=== PATIENT | male | born 1995 | race Caucasian/White ===

== ENCOUNTER 2017-03-17 14:56 | Inpatient (IN) | payer BC, OTHER ==
[~2017-03-17] VITALS: Ht 165.1 cm; Wt 63.5 kg
[~2017-03-17 14:56] MED LIST: Gabapentin PO; MULT-24 PO; SERT100T PO; TRAZ-147 PO
--- NOTE | 2017-03-17 23:30 | NUR ---
ADMISSION NOTE--- ADMITTING 22 Y/O MALE FOR HEROIN/METH/BENZO DEPENDENCY.PT IS A/O X 4.THIS IS HIS THIRD ADMISSION TO [facility].HE WAS HERE TWO TIMES IN 2016 IN APRIL AND SEPTEMBER.PT IS 5 FEET AND 5 INCHES TALL.WEIGHS 140 POUNDS.HE IS PLEASANT AND COOPERATIVE WITH ADMISSION PROCESS.PLACED ON REGULAR DIET,FULL CODE STATUS.PY DENIES ANY ALLERGIES TO FOOD OR MEDICATIONS.SKIN IS INTACT,WARM AND DRY TO TOUCH.PT HAS TRACK WILLAMS ON BOTH HANDS,ARMS,LEGS AND NECK.RIGHT HAND IS SWOLLEN.NO C/O PAIN OR S/S OF INFECTION NOTED.BREATHING IS EVEN AND NON LABORED.BOWEL SOUNDS PRESENT X 4.NO C/O N/V/D NOTED.PT DENIES ANY SI/HI/AH/VH.PT REPORTED PMH OF ANXIETY,DEPRESSION AND A ONE TIME SEIZURE DUE TO BENZO WITHDRAWAL 4 YEARS AGO.PT DOES NOT HAVE A PCP.HE IS HOMELESS AND IS LIVING IN HIS CAR.PT HAS BEEN USING HEROIN SINCE THE AGE OF 16,METH SINCE THE AGE OF 18 AND BENZOS SINCE THE AGE OF 16.HE RELAPSED ONE MONTH AFTER HE WAS DISCHARGED FROM [facility] IN OCTOBER 2016.DRUGS USE FOLLOWS:-- 1) HEROIN - 1 TO 2 GRAMS IV DAILY. LAST USED - 1/2 GRAM ON 03/17/17 2) METH - 1 TO 3 GRAMS DAILY,IV/SNORTING. LAST USE - 3 GRAMS ON 03/17/17 3) BENZOS - UPTO 12 MGS PO DAILY. LAST TAKEN - 10 MGS ON 03/17/17 PT ORIENTED TO ROOM AND UNIT.SNACKS PROVIDED.CARE PLAN AND SAFETY CHECKS INITIATED. NOTIFIED.PT PLACED ON FALL/SEIZURE PRECAUTIONS.ALL SAFETY MEASURES IN PLACE.BED IS LOCKED IN THE LOWEST POSITION,SIDE RAILS UP AND PADDED X 2.CALL LIGHT WITHIN REACH.WILL CONTINUE TO MONITOR. Addendum: 03/18/17 at 0219 by MARISSA TITI RN ON ADMISSION,COWS=6,CIWA=1.
[2017-03-17] MEDS ORDERED: diphenhydrAMINE 50 MG CAPSULE PO PRN (23:45)
[2017-03-17] MEDS ORDERED: CLONIDINE HCL 0.1 MG TABLET PO PRN (23:45)
[2017-03-17] MEDS ORDERED: ONDANSETRON ODT 4 MG TAB.RAPDIS SL PRN (23:45)
[2017-03-17] MEDS ORDERED: METHOCARBAMOL 750 MG TABLET PO PRN (23:45)
[2017-03-17] MEDS ORDERED: HYDROXYZINE PAMOATE 25 MG CAPSULE PO PRN (23:45)
[2017-03-17] MEDS ORDERED: MAG HYDROX/AL HYDROX/SIMETH 30 ML LIQUID UDC PO PRN (23:45)
[2017-03-17] MEDS ORDERED: DIAZEPAM 10 MG TABLET PO PRN ×2 (23:45)
[2017-03-17] MEDS ORDERED: LOPERAMIDE HCL 2 MG CAPSULE PO PRN ×2 (23:45)
[2017-03-17] MEDS ORDERED: MAGNESIUM HYDROXIDE 30 ML LIQUID UDC PO PRN (23:45)
[2017-03-17] MEDS ORDERED: ACETAMINOPHEN 325 MG TABLET PO PRN (23:45)
[2017-03-17] MEDS ORDERED: MIRALAX 17 GM POWD.PACK PO PRN (23:45)
[2017-03-17] MEDS ORDERED: LORAZEPAM 2 MG/1 ML VIAL IM PRN (23:45)
[2017-03-18] VITALS (7 sets, daily range): BP systolic 101–129; BP diastolic 47–75
[2017-03-18 00:45] LABS: ALANINE AMINOTRANSFERASE 24 U/L (16-63); ALBUMIN 3.6 g/dL (3.4-5.0); ALKALINE PHOSPHATASE 87 U/L (50-136); AMYLASE 55 U/L (25-115); ASPARTATE AMINOTRANSFERASE 20 U/L (15-37); BILIRUBIN,TOTAL 0.2 mg/dL (0.2-1.0); CALCIUM 9.2 mg/dL (8.5-10.1); CHLORIDE 100 mmol/L (98-107); CREATININE 0.9 mg/dL (0.6-1.3); GFR 106 mL/min (>60); GLUCOSE 88 mg/dL (74-106); LIPASE 60 U/L (73-393); MAGNESIUM 1.9 mg/dL (1.8-2.4); POTASSIUM 3.8 mmol/L (3.5-5.1); SODIUM SERUM 138 mmol/L (136-145); TOTAL PROTEIN, SERUM 8.5 g/dL (6.4-8.2); UREA NITROGEN, BLOOD 13 mg/dL (7-18)
[2017-03-18] MEDS ORDERED: CLONIDINE HCL 0.1 MG TABLET ONE (00:45)
--- NOTE | 2017-03-18 00:45 | NUR ---
PRN CLONIDINE 0.1 MG PO GIVEN FOR ANXIETY.UB=962.WILL MONITOR FOR EFFECTIVENESS.
[2017-03-18 00:53] LABS: ETHANOL < 3 MG/DL (0-0)
[2017-03-18 00:54] LABS: CARBON DIOXIDE 33 mmol/L (21-32)
[2017-03-18 00:55] LABS: BASOPHILS % (AUTO) 0.5 % (0.0-2.0); EOSINOPHILS # (AUTO) 0.4 K/uL (0.0-0.7); EOSINOPHILS % (AUTO) 4.9 % (0.0-7.0); HEMATOCRIT 37.3 % (36.7-47.1); HEMOGLOBIN 12.4 g/dL (12.5-16.3); LYMPHOCYTES # (AUTO) 1.4 K/uL (20.0-40.0); LYMPHOCYTES % (AUTO) 18.3 % (20.5-51.5); MEAN CORPUSCULAR HEMOGLOBIN 26.9 uug (23.8-33.4); MEAN CORPUSCULAR HGB CONC 33 g/dL (32.5-36.3); MONOCYTES # (AUTO) 0.5 K/uL (2.0-10.0); MONOCYTES % (AUTO) 6.9 % (0.0-11.0); NEUTROPHILS # (AUTO) 5.3 K/uL (1.8-8.9); NEUTROPHILS % (AUTO) 69.4 % (38.5-71.5); PLATELET COUNT (AUTO) 395 K/uL (152-348); RED BLOOD CELL COUNT(AUTO) 4.61 MIL/uL (4.06-5.63); RED CELL DISTRIBUTION WIDTH 13.6 % (12.1-16.2); WHITE BLOOD COUNT (AUTO) 7.6 K/uL (3.6-10.2)
[2017-03-18 00:58] LABS: THYROID STIMULATING HORMONE 4.515 mIU/mL (0.358-3.740)
[2017-03-18 01:02] LABS: HIV-1 p24 ANTIGEN NON REACTIVE (NONREACTIVE); HIV-1/2 ANTIBODY NON REACTIVE (NONREACTIVE)
[2017-03-18] MEDS ORDERED: RISP2TAB5 PO (01:39)
--- NOTE | 2017-03-18 01:45 | NUR ---
PRN F/U-- DECREASED ANXIETY.HR REDUCED TO 100.PT EDUCATED ON RELAXATION TECHNIQUES.ENCOURAGED TO RELAX.
[2017-03-18 01:46] LABS: *AMPHETAMINE, URINE POSITIVE (NEGATIVE); *BARBITURATE, URINE NEGATIVE (NEGATIVE); *CANNABINOID, URINE NEGATIVE (NEGATIVE); *COCCAINE, URINE NEGATIVE (NEGATIVE); *OPIATE, URINE POSITIVE (NEGATIVE); *PHENCYCLIDINE SCREEN,URINE NEGATIVE (NEGATIVE)
[2017-03-18] MEDS: DIAZEPAM 5 MG TABLET PO PRN ×2 (04:06→08:24)
--- NOTE | 2017-03-18 04:08 | NUR ---
PRN VALIUM 5 MG PO GIVEN FOR ANXIETY/CIWA SCORE 0F 5.WILL MONITOR.
[2017-03-18] MEDS ORDERED: DIAZEPAM 5 MG TABLET ONE (04:13)
--- NOTE | 2017-03-18 05:08 | NUR ---
PRN F/U--- PT IS RESTING IN BED WITH EYES CLOSED.NO S/S OF ANXIETY NOTED AT THIS TIME.
--- NOTE | 2017-03-18 06:39 | NUR ---
END OF SHIFT-- PT IS 22 Y/O MALE FOR HEROIN/METH/BENZO DEPENDENCY.PT IS A/O X4.PLACED ON REGULAR DIET,FULL CODE STATUS.PY DENIES ANY ALLERGIES TO FOOD OR MEDICATIONS.SKIN IS INTACT,WARM AND DRY TO TOUCH.PT HAS TRACK WILLAMS ON BOTH HANDS,ARMS,LEGS AND NECK.RIGHT HAND IS SWOLLEN.NO C/O PAIN OR S/S OF INFECTION NOTED.BREATHING IS EVEN AND NON LABORED.BOWEL SOUNDS PRESENT X 4.NO C/O N/V/D NOTED.PT DENIES ANY SI/HI/AH/VH.PT REPORTED PMH OF ANXIETY,DEPRESSION AND A ONE TIME SEIZURE DUE TO BENZO WITHDRAWAL 4 YEARS AGO. ON ADMISSION,COWS=6,CIWA=1.PRN CLONIDINE GIVEN FOR ANXIETY AND HR OF 123,AND PRN VALIUM GIVEN FOR CIWA OF 5 WITH GOOD EFFECT.PT SLEPT 3 HRS LAST NIGHT.FLUID INTAKE WAS 3,750 MLS,VOIDED X I.NO C/O PAIN NOTED,ALL SAFETY MEASURES IN PLACE,LAST COWS=2,CIWA=2.CALL LIGHT WITHIN REACH,WILL CONTINUE TO MONITOR.
--- NOTE | 2017-03-18 08:00 | NUR ---
START OF SHIFT Pt 22 y/o male admitted for opioid/ methamphetamine/ benzo dependence. Pt received in room awake standing. Pt alert and oriented to name, place, and time. Perrla. Skin warm and slightly moist to touch. Bilateral hand tremors noted. Pt not able to sit still and also with pressured speech noted. It was reported that pt slept for 2 hours last night. Bed on lowest position with side rails x2 up for safety. Call light within reach. Lowered the blinds and turned off the lights and encourage pt to try and get some more rest, as pt did not sleep that long last night. No distress noted at this time.
[2017-03-18] MEDS: IBUPROFEN 400 MG TABLET PO PRN (08:24)
[2017-03-18] MEDS: MULTIVITAMINS,THERAPEUTIC TABLET PO SCH (08:24)
--- NOTE | 2017-03-18 08:24 | NUR ---
PRN Pt with ciwa=7. Pt observed with bilateral hand tremors. Pressured speech noted. Pt not able to sit still. Valium 5mg po prn per MD order given and tolerated well.
--- NOTE | 2017-03-18 08:24 | NUR ---
PRN Pt states he feels anxious and restless. Vistaril po prn per MD order given and tolerated well.
--- NOTE | 2017-03-18 08:24 | NUR ---
PRN Pt with c/o pain of BUE 7/10 aching. Motrin po prn per MD order given and tolerated well.
--- NOTE | 2017-03-18 08:24 | NUR ---
PRN Pt states that he did not have a BM today and feels constipated. MOM po prn per MD order given and tolerated well.
--- NOTE | 2017-03-18 08:24 | NUR ---
PRN Pt states he feels nauseated. Zoforan odt sl prn per MD order given and tolerated well.
[2017-03-18] MEDS ORDERED: TUBERCULIN,PURIF.PROT.DERIV. 5 TU/0.1 ML TEST ID ONE (09:00)
--- NOTE | 2017-03-18 09:24 | NUR ---
PRN EVAL Pt denies any nausea at this time.
--- NOTE | 2017-03-18 09:24 | NUR ---
PRN EVAL Pt with ciwa=3 noted.
--- NOTE | 2017-03-18 09:24 | NUR ---
PRN EVAL Pt states pain level 3/10 noted.
--- NOTE | 2017-03-18 09:24 | NUR ---
PRN EVAL Pt observed in patio sitting. No distress noted at this time.
[2017-03-18] MEDS: DIAZEPAM 10 MG TABLET PO SCH ×3 (13:05→21:12)
[2017-03-18] MEDS: BUPRENORPHINE HCL 2 MG TAB.SUBL SL PRN ×3 (13:05→21:12)
--- NOTE | 2017-03-18 13:07 | NUR ---
PRN Pt with c/o runny nose, stomach cramps, body aches, bilateral gross hand tremos, chills and sweats, and goose bumps noted. cows=15. Subutex 4 mg po prn per MD order given and tolerated well.
--- NOTE | 2017-03-18 13:07 | NUR ---
PRN EVAL Cows=4. Pt observed in room on bed with eyes closed resting, but easily arousable to name. No distress noted at this time.
[2017-03-18] MEDS: GABAPENTIN 300 MG CAPSULE PO SCH ×2 (15:00→21:12)
--- NOTE | 2017-03-18 17:39 | NUR ---
PRN SUBUTEX Patient has COWS = 12, reports sweating, nausea, piloerection, tremors, anxiety and bony/joint aches. PRN subutex 4mg po given. Will continue to monitor patient.
[2017-03-18] MEDS ORDERED: TRAZODONE 100 MG TABLET PO SCH ×2 (18:00)
--- NOTE | 2017-03-18 18:09 | NUR ---
REASSESSMENT PRN SUBUTEX Patient has COWS = 9, reports sweating, piloerection, tremors, anxiety and bony/joint aches. Patient reports nausea improved.
--- NOTE | 2017-03-18 19:29 | NUR ---
END OF SHIFT Pt 22 y/o male admitted for opioid/ methamphetamine/ benzo dependence. Pt alert and oriented to name, place, and time. Perrla. Skin warm and slightly moist to touch. Bilateral hand tremors noted. Pt with episodes of sweats throughout the day. Goosebumps also noted on skin throughout the afternoon. Pt medication compliant and tolerated well. No ASE noted. Bed on lowest position with side rails x2 up for safety. Call light within reach. . No distress noted at this time.
--- NOTE | 2017-03-18 20:00 | NUR ---
Start of Shift Note: Report received from day shift nurse. Pt is a 22 yo male admitted on 03/17/17 for medically-supervised withdrawal from benzodiazepines, opiates, and amphetamines. Pt reports taking 12mg Xanax, using 1-2gm heroin, and 1-3gm methamphetamine daily for 4 months. Pt is on day 2 of a 5-day Valium taper, and PRN Subutex is available. 4-day Subutex taper to start tomorrow morning. Last day shift COWS=9, CIWA=6, and PRN Subutex was given x2 during day shift. Pt is on a regular diet. Pt reports NKDA/NKFA. Pt reports med hx: anxiety, depression, and seizure x1 (2012). Pt received in room, and reports anxiety, diaphoresis, sensitivity to light and sound, tremor, chills, restlessness, stomach cramps, and pain. Bed is in low position and locked, side rails up x2, call light within reach. Will continue to monitor.
[2017-03-18] MEDS: TRAZODONE 100 MG TABLET PO SCH (21:12)
--- NOTE | 2017-03-18 21:14 | NUR ---
PRN Subutex 4mg: Patient complains of stomach cramps, back pain, chills, anxiety, restlessness. Patient noted with pupils at 5mm and diaphoresis. HR is 104 at rest. COWS is 12. Administered PRN Subutex 4mg SL as ordered according to CIWA score. Will reassess in one hour for effectiveness.
--- NOTE | 2017-03-18 22:12 | NUR ---
PRN Reassessment: Patient reports a decrease in anxiety, diaphoresis, pain, and stomach cramps. COWS decreased from 12 to 3 one hour after PRN Subutex 4mg SL administration. Will continue to monitor.
[2017-03-19] VITALS (8 sets, daily range): BP systolic 86–119; BP diastolic 33–64
--- NOTE | 2017-03-19 | NUR ---
COWS/CIWA Deferred: COWS and CIWA assessments are deferred for sleep. VS: 98.1, 77, 16, 99%, 115/59. Addendum: 03/19/17 at 0236 by MARILYN BUI RN Amended: Links added.
--- NOTE | 2017-03-19 04:00 | NUR ---
COWS/CIWA Deferred: COWS/CIWA assessments are deferred while patient sleeps. VS: 98.0, 68, 16, 99%, 86/41. Addendum: 03/19/17 at 0600 by MARILYN BUI RN Amended: Links added.
--- NOTE | 2017-03-19 06:59 | NUR ---
End of Shift Note: Pt is a 22 yo male admitted to [facility] on 03/17/17 for medically-supervised withdrawal from benzodiazepines, opiates, and amphetamines. Pt reports med hx: anxiety, depression, and seizure x1 (2012). Pt is on a regular diet. Pt reports NKDA/NKFA. Pt reports taking 12mg Xanax, using 1-2gm heroin, and 1-3gm methamphetamine daily for 4 months. Pt is to start day 3 of a 5-day Valium taper and day 1 of a 4-day Subutex taper. Scheduled medication regime effectively managed s/s of withdrawal this shift, in addition to PRN Subutex for COWS=12, which was effective and reduced COWS=3. Last COWS=3 at 22:12 and CIWA=9 at 20:00. V/S stable throughout shift, with elevated HR of 104 at 20:00. Total fluid intake this shift: 400 ml; output: urine x 1 and BM x 0. Pt currently in bed and slept 9 hours this shift. Pt endorsed to day shift nurse.
--- NOTE | 2017-03-19 07:30 | NUR ---
START OF SHIFT Pt 22 y/o male admitted for opioid/ methamphetamine/ benzo dependence. Pt received in room with eyes closed resting, but easily arousable to name. Pt alert and oriented to name, place, and time. Perrla. Skin warm and slightly moist to touch. Bilateral hand tremors noted. It was reported that pt slept for 9 hours last night. Bed on lowest position with side rails x2 up for safety. Call light within reach. No distress noted at this time.
[2017-03-19] MEDS: DIAZEPAM 10 MG TABLET PO SCH ×3 (08:27→21:10)
[2017-03-19] MEDS: MULTIVITAMINS,THERAPEUTIC TABLET PO SCH (08:27)
[2017-03-19] MEDS: GABAPENTIN 300 MG CAPSULE PO SCH ×3 (08:27→21:10)
[2017-03-19] MEDS: SERTRALINE HCL 100 MG TABLET PO SCH (08:28)
[2017-03-19] MEDS: BUPRENORPHINE HCL 2 MG TAB.SUBL SL SCH ×3 (08:28→21:10)
[2017-03-19] MEDS ORDERED: 4 DAY TAPER BUPRENORPHINE -SERENITY PROTOCOL SL PRN (09:00)
--- NOTE | 2017-03-19 10:00 | NUR ---
NSG ENTRY Pt observed in room awake on bed watching television. Bed on lowest position with side rails x2 up for safety. Call light within reach. No distress noted at this time.
[2017-03-19 14:08] LABS: HEPATITIS B CORE AB, IgM Negative (Negative); HEPATITIS B SURFACE AG Negative (Negative)
--- NOTE | 2017-03-19 18:05 | NUR ---
END OF SHIFT Pt 22 y/o male admitted for opioid/ methamphetamine/ benzo dependence. Pt alert and oriented to name, place, and time. Perrla. Skin warm and slightly moist to touch. Bilateral hand tremors noted. Goose bumps also noted on skin mostly generalized on bilateral arms, throughout the morning. Pt medication compliant and tolerated well. No ASE noted. Pt was seen by Dr. May today. Bed on lowest position with side rails x2 up for safety. Call light within reach. . No distress noted at this time.
--- NOTE | 2017-03-19 19:50 | NUR ---
Start of Shift Note: Report received from day shift nurse. Pt is a 22 yo male admitted on 03/17/17 for medically-supervised withdrawal from opiates, benzodiazepines, and amphetamines. Pt reports taking Xanax 12mg/day, using heroin 1-2gm/day, and methamphetamine 1-3gm/day for 4 months. Pt is on day 3 of a 5-day Valium taper, and day 1 of a 4-day Subutex taper. Last day shift COWS=5, CIWA=2, and no PRN medications were necessary during day shift. Pt is on a regular diet. Pt reports NKDA/NKFA. Pt reports med hx: anxiety, depression, and seizure x1 (2012). Pt received in room, and reports anxiety, diaphoresis, chills. Bed is in low position and locked, side rails up x2, call light within reach. Will continue to monitor.
[2017-03-19] MEDS: DOCUSATE SODIUM 100 MG CAPSULE PO SCH (21:10)
[2017-03-19] MEDS: TRAZODONE 100 MG TABLET PO SCH (21:10)
[2017-03-20] VITALS (7 sets, daily range): BP systolic 105–124; BP diastolic 51–81
--- NOTE | 2017-03-20 | NUR ---
COWS/CIWA Deferred: Ordered COWS/CIWA Q4HWA deferred while patient sleeps. VS: 98.5, 67, 14, 98%, 110/53. All safety precautions are in place. Will continue to monitor. Addendum: 03/20/17 at 0036 by MARILYN BUI RN Amended: Links added.
--- NOTE | 2017-03-20 04:00 | NUR ---
COWS/CIWA Deferred: COWS and CIWA are deferred for sleep. V/S stable. All safety precautions are in place. Will continue to monitor. Addendum: 03/20/17 at 0530 by MARILYN BUI RN Amended: Links added.
--- NOTE | 2017-03-20 07:06 | NUR ---
End of Shift Note: Pt is a 22 yo male admitted to [facility] on 03/17/17 for medically-supervised withdrawal from benzos, opiates, and amphetamines. Pt reports med hx: anxiety, depression, and seizure. Pt is on a regular diet and reports NKDA/NKFA. Pt reports using 12mg Xanax, 1-2gm heroin, and 1-3gm methamphetamine daily for 4 months. Pt is to start day 2 of a 4-day Subutex taper and day 4 of a 5-day Valium taper. Scheduled medication regime effectively managed s/s of withdrawal this shift, and no PRN medications were necessary. Last COWS=6, CIWA=7 at 20:00. V/S stable throughout shift. Total fluid intake this shift: 800 ml; output: urine x 1 and BM x 0. Pt is currently in bed and slept 9 hours this shift. Pt endorsed to day shift nurse.
--- NOTE | 2017-03-20 08:00 | NUR ---
START OF SHIFT Pt 22 y/o male admitted for opioid/ methamphetamine/ benzo dependence. Pt received in room on bed watching television. Pt alert and oriented to name, place, and time. Perrla. Skin warm and slightly moist to touch. Bilateral hand tremors noted. It was reported that pt slept for 9 hours last night. Bed on lowest position with side rails x2 up for safety. Call light within reach. No distress noted at this time.
[2017-03-20 08:31] LABS: BASOPHILS % (AUTO) 0.6 % (0.0-2.0); EOSINOPHILS # (AUTO) 0.3 K/uL (0.0-0.7); EOSINOPHILS % (AUTO) 5.2 % (0.0-7.0); HEMATOCRIT 37.1 % (40-50); HEMOGLOBIN 12.3 G/DL (14.0-18.0); LYMPHOCYTES # (AUTO) 1.1 K/uL (20.0-40.0); LYMPHOCYTES % (AUTO) 21.8 % (20.5-51.5); MEAN CORPUSCULAR HEMOGLOBIN 27.1 UUG (27.0-31.0); MEAN CORPUSCULAR HGB CONC 33 g/dL (32.0-37.0); MEAN CORPUSCULAR VOLUME 81.6 FL (82.0-92.0); MONOCYTES # (AUTO) 0.8 K/uL (2.0-10.0); MONOCYTES % (AUTO) 15.4 % (0.0-11.0); PLATELET COUNT (AUTO) 338 K/UL (150-450); RED BLOOD CELL COUNT(AUTO) 4.55 MIL/UL (4.7-6.1); RED CELL DISTRIBUTION WIDTH 13.5 % (11.5-14.5); WHITE BLOOD COUNT (AUTO) 5.2 K/UL (4.0-11.2)
[2017-03-20] MEDS: IBUPROFEN 400 MG TABLET PO PRN (08:44)
[2017-03-20] MEDS: DOCUSATE SODIUM 100 MG CAPSULE PO SCH ×2 (08:44→20:43)
[2017-03-20] MEDS: MULTIVITAMINS,THERAPEUTIC TABLET PO SCH (08:44)
[2017-03-20] MEDS: SERTRALINE HCL 100 MG TABLET PO SCH (08:44)
[2017-03-20] MEDS: DIAZEPAM 5 MG TABLET PO SCH ×4 (08:44→20:43)
[2017-03-20] MEDS: GABAPENTIN 300 MG CAPSULE PO SCH ×3 (08:44→20:42)
--- NOTE | 2017-03-20 08:44 | NUR ---
PRN Pt with c/o back aches 02/23. Motrin po prn per MD order given and tolerated well.
[2017-03-20] MEDS ORDERED: BUPRENORPHINE HCL 2 MG TAB.SUBL SL SCH (09:00)
[2017-03-20 09:04] LABS: CALCIUM 8.9 mg/dL (8.5-10.1); CREATININE 0.9 mg/dL (0.6-1.3); POTASSIUM 4.4 mmol/L (3.5-5.1)
[2017-03-20 09:07] LABS: BAND % (MANUAL) 1 % (0-10); EOSINOPHILS % (MANUAL) 4 % (0-8); LYMPHOCYTES % (MANUAL) 33 % (20-40); MONOCYTES % (MANUAL) 13 % (2-10); NEUTROPHILS % (MANUAL) 49 % (42-75)
[2017-03-20 09:08] LABS: PLATELET ESTIMATE ADEQUATE
[2017-03-20 09:28] LABS: THYROID STIMULATING HORMONE 0.291 mIU/mL (0.358-3.740)
--- NOTE | 2017-03-20 09:44 | NUR ---
TORO MADDEN Pt observed in room watching television. Pt denies any c/o pain at this time.
[2017-03-20] MEDS: BUPRENORPHINE HCL 2 MG TAB.SUBL SL SCH ×2 (14:14→20:42)
--- NOTE | 2017-03-20 18:34 | NUR ---
END OF SHIFT Pt 22 y/o male admitted for opioid/ methamphetamine/ benzo dependence. Pt alert and oriented to name, place, and time. Perrla. Skin warm and slightly moist to touch. Bilateral hand tremors noted. Pt observed mostly in room throughout the afternoon and in the patio in the morning. Pt medication compliant and tolerated well. No ASE noted. Bed on lowest position with side rails x2 up for safety. Call light within reach. . No distress noted at this time.
--- NOTE | 2017-03-20 19:50 | NUR ---
Start of Shift Note: Report received from day shift nurse. Pt is a 22 yo male admitted for medically-supervised withdrawal from opiates, benzodiazepines, and methamphetamine. Pt reports using 12mg Xanax, 1-2gm heroin, and 1-3gm methamphetamine daily for 4 months. Pt is on day 2 of a 4-day Subutex taper, and day 4 of a 5-day Valium taper. Pt received with last COWS=4, CIWA=2, and PRN Motrin was given during day shift. Pt is on a regular diet and reports NKDA/NKFA. Pt reports med hx: anxiety, depression, and seizure x1 r/t withdrawal. Pt received in room, and reports anxiety, back pain, and restlessness. Patient reports constipation, with last small, hard BM on 03/19/17. Bowel sounds hypoactive in all quadrants. Bed is in low position and locked, side rails up x2, call light within reach. Will continue to monitor.
[2017-03-20] MEDS: TRAZODONE 100 MG TABLET PO SCH (20:43)
--- NOTE | 2017-03-20 20:43 | NUR ---
PRN Miralax: Patient complains of constipation. Last BM was small and hard on 03/19/17. Bowel sounds hypoactive in all quadrants. Fluids and ambulation encouraged. Administered PRN Miralax as ordered. Will continue to monitor.
[2017-03-21] VITALS: BP 100/51
--- NOTE | 2017-03-21 | NUR ---
COWS/CIWA Deferred: COWS and CIWA assessments are deferred for sleep. V/S stable at this time. All safety precautions are in place. Will continue to monitor. Addendum: 03/21/17 at 0218 by MARILYN BUI RN Amended: Links added.
[2017-03-21 04:00] VITALS: BP 97/60
--- NOTE | 2017-03-21 04:00 | NUR ---
COWS and CIWA Deferred: COWS and CIWA assessments are deferred for sleep. V/S stable. No acute distress noted. All safety precautions are in place. Will continue to monitor. Addendum: 03/21/17 at 0518 by MARILYN BUI RN Amended: Links added.
--- NOTE | 2017-03-21 06:57 | NUR ---
End of Shift Note: Pt is a 22 yo male admitted on 03/17/17 for medically-supervised withdrawal from benzos, opiates, and amphetamines. Pt reports using 12mg Xanax, 1-2gm heroin, and 1-3gm methamphetamine daily for 4 months. Pt is to start day 3 of a 4-day Subutex taper and day 5 of a 5-day Valium taper. Scheduled medication regime effectively managed s/s of withdrawal this shift, and no PRN medications were necessary for withdrawal. Last COWS=4, CIWA=2 at 20:00. PRN Miralax was given for constipation, which was not effective. Endorsed PRN Milk of Mag administration. V/S stable throughout shift, with elevated HR of 86 at 20:00. Total fluid intake this shift: 1123 ml; output: urine x 4 and BM x 0. Pt is currently in bed and slept 8 hours this shift. Pt endorsed to day shift nurse.
--- NOTE | 2017-03-21 07:00 | NUR ---
Start of Shift Notes: Received patient in his room. Alert and oriented x 4. Verbally responsive. Able to make his needs known. Respirations even and unlabored. No SOB noted. Skin warm and dry to touch. Abdomen soft and non-distended. BS (+) in all 4 quadrants. No complains of N/V/D or constipation noted. Voids independently. Ambulatory ad tigist with steady gait. Patient is a 22 year old male admitted for opiate, meth and BZO dependence who was placed on a 4-day Subutex and 5-day Valium taper as ordered. No adverse reactions noted. Has past medical hx of depression, ADHD, borderline sociopath and anxiety. NKA. FULL CODE. Regular diet. On fall and seizure precautions. Educated patient on his current plan of care for the day and his medication regimen. All needs met and attended. Will continue to monitor closely.
[2017-03-21 08:00] VITALS: BP 103/52
[2017-03-21] MEDS: DIAZEPAM 5 MG TABLET PO SCH ×3 (09:12→20:22)
[2017-03-21] MEDS: MULTIVITAMINS,THERAPEUTIC TABLET PO SCH (09:12)
[2017-03-21] MEDS: DOCUSATE SODIUM 100 MG CAPSULE PO SCH ×2 (09:12→20:21)
[2017-03-21] MEDS: BUPRENORPHINE HCL 2 MG TAB.SUBL SL SCH ×3 (09:12→20:22)
[2017-03-21] MEDS: GABAPENTIN 300 MG CAPSULE PO SCH ×3 (09:12→20:22)
[2017-03-21] MEDS: SERTRALINE HCL 100 MG TABLET PO SCH (09:12)
[2017-03-21 12:00] VITALS: BP 121/61
--- NOTE | 2017-03-21 13:00 | NUR ---
Miralax re-assessment: Patient reports x 1 episode of BM. PRN Miralax was effective.
[2017-03-21 16:00] VITALS: BP 125/61
--- NOTE | 2017-03-21 18:41 | NUR ---
End of Shift Notes: Patient is a 22 year old male admitted for opiate and methamphetamine dependence who was placed on a a5-day Subutex and 5-day Valium taper as ordered. No adverse reactions noted. Has past medical hx of anxiety, depression and seizures. NKA. FULL CODE. Regular diet. On fall and seizure precautions. Prior to admission, patient was using 1-2 grams of heroin daily and 1-3 grams of meth and 12 grams of BZO daily. VS monitored closely. No significant abnormalities noted. Withdrawal symptoms were closely monitored. Patient presented with anxiety, stomach cramps and bone/joint aches. Initial COWS 4/CIWA 2. Last COWS 2/CIWA 1. Patient requires encouragement to attend activities. Appetite good. Oral fluids encouraged. On fall and seizure precautions. All needs met and attended. Will continue to monitor closely.
[2017-03-21 20:00] VITALS: BP 111/71
--- NOTE | 2017-03-21 20:00 | NUR ---
Start of Shift Pt is a 22 year old male admitted for Benzo/Opiate/meth dependence, placed on 5 day Valium taper and 5 day Subutex taper. PMH: Anxiety, depression and seizure x1 d/t benzo withdrawal 4 years ago. NKA, fall/seizure precautions, regular diet and full code. Upon assessment, pt presented with anxiety, tremors felt up on touch, reports muscle/aches, skin flushed/clammy, respirations even/unlabored, denies n/v/d, bowel sounds active x4, abdomen soft. Safety measures in place, call light within reach, side rails up x2, bed locked and in low position. Will continue to monitor.
[2017-03-21] MEDS: TRAZODONE 100 MG TABLET PO SCH (20:22)
[2017-03-22] VITALS: BP 94/53
--- NOTE | 2017-03-22 | NUR ---
Vital Signs BP 94/53, pulse 64, respirations 16, SpO2 98%, temp 97.9, no pain 0/10 CIWA/CIWA assessment defered d/t pt sleeping, to assess while pt is awake as ordered. Safety measures in place, will continue to monitor. Addendum: 03/22/17 at 0126 by SYED GALICIA RN CIWA/COWS assessment deferred d/t pt sleeping, to assess while pt is awake as ordered.
[2017-03-22 04:00] VITALS: BP 101/51
--- NOTE | 2017-03-22 04:00 | NUR ---
Vital Signs BP 101/51, pulse 56, respirations 14, SpO2 98%, temp 98, no pain 0/10 CIWA/COWS assessment deferred d/t pt sleeping, to assess while pt is awake as ordered. Safety measures in place, will continue to monitor.
--- NOTE | 2017-03-22 07:00 | NUR ---
End of Shift Pt is a 22 year old male admitted for Benzo/Opiate/meth dependence, placed on 5 day Valium taper and 5 day Subutex taper. PMH: Anxiety, depression and seizure x1 d/t benzo withdrawal 4 years ago. NKA, fall/seizure precautions, regular diet and full code. During shift, pt presented with anxiety, tremors felt up on touch, reports muscle/aches, skin flushed/clammy - scheduled taper medications administered, effective in management of s/s of withdrawal as reported by pt, COWS 3 and CIWA 2. No PRN medications administered. Pt is on day 5 of taper. Pt slept for 6 hours, intake of 950 ml PO and voids x2. Safety measures in place, call light within reach, side rails up x2, bed locked and in low position. Endorsed to day shift nurse.
--- NOTE | 2017-03-22 07:05 | NUR ---
Start of Shift Notes: Received patient in his room. Alert and oriented x 4. Verbally responsive. Able to make his needs known. Respirations even and unlabored. No SOB noted. Skin warm and dry to touch. Abdomen soft and non-distended. BS (+) in all 4 quadrants. No complains of N/V/D or constipation noted. Voids independently. Ambulatory ad tigist with steady gait. Patient is a 22 year old male admitted for opiate, meth and BZO dependence who was placed on a 5-day Subutex and 5-day Valium taper as ordered. No adverse reactions noted. Has past medical hx of depression, ADHD, borderline sociopath and anxiety. NKA. FULL CODE. Regular diet. On fall and seizure precautions. Educated patient on his current plan of care for the day and his medication regimen. Encouraged oral fluid intake and encouraged group participation to learn new skills to prevent relapse. All needs met and attended. Will continue to monitor closely.
[2017-03-22 08:00] VITALS: BP 112/61
[2017-03-22] MEDS ORDERED: BUPRENORPHINE HCL 2 MG TAB.SUBL SL SCH (09:00)
[2017-03-22] MEDS: GABAPENTIN 300 MG CAPSULE PO SCH ×3 (09:13→20:33)
[2017-03-22] MEDS: MULTIVITAMINS,THERAPEUTIC TABLET PO SCH (09:13)
[2017-03-22] MEDS: DOCUSATE SODIUM 100 MG CAPSULE PO SCH ×2 (09:13→20:33)
[2017-03-22] MEDS: DIAZEPAM 5 MG TABLET PO SCH ×2 (09:14→20:33)
[2017-03-22] MEDS: SERTRALINE HCL 100 MG TABLET PO SCH (09:14)
[2017-03-22 12:00] VITALS: BP 108/72
--- NOTE | 2017-03-22 14:00 | NUR ---
Mid Shift Note: COWS 1, CIWA 1. Patient is in group at this time.
[2017-03-22 16:00] VITALS: BP 119/79
--- NOTE | 2017-03-22 18:55 | NUR ---
End of Shift Notes: Patient is a 22 year old male admitted for opiate and methamphetamine dependence who was placed on a a5-day Subutex and 5-day Valium taper as ordered. No adverse reactions noted. Has past medical hx of anxiety, depression and seizures. NKA. FULL CODE. Regular diet. On fall and seizure precautions. Prior to admission, patient was using 1-2 grams of heroin daily and 1-3 grams of meth and 12 grams of BZO daily. VS monitored closely. No significant abnormalities noted. Withdrawal symptoms were closely monitored. Patient presented with anxiety. Initial COWS 2/CIWA 2. Last COWS 0/CIWA 0. Patient requires encouragement to attend activities. Appetite good. Oral fluids encouraged. On fall and seizure precautions. All needs met and attended. Will continue to monitor closely.
[2017-03-22 20:00] VITALS: BP 113/57
--- NOTE | 2017-03-22 20:00 | NUR ---
Start of Shift Pt is a 22 year old male admitted for Benzo/Opiate/meth dependence, placed on 5 day Valium taper and 5 day Subutex taper. PMH: Anxiety, depression and seizure x1 d/t benzo withdrawal 4 years ago. NKA, fall/seizure precautions, regular diet and full code. Upon assessment, pt presents with muscle aches, skin flushed, respirations even/unlabored, denies n/v/d, bowel sounds active x4, abdomen soft. Safety measures in place, call light within reach, side rails up x2, bed locked and in low position. Will continue to monitor.
[2017-03-22] MEDS: TRAZODONE 100 MG TABLET PO SCH (20:33)
[2017-03-23] VITALS: BP 100/64
--- NOTE | 2017-03-23 | NUR ---
Vital Signs BP 100/64, pulse 62, respirations 14, SpO2 96%, temp 97.9, no pain 0/10 CIWA/COWS assessment deferred d/t pt sleeping, to assess while pt is awake as ordered. Safety measures in place, will continue to monitor.
[2017-03-23 04:00] VITALS: BP 104/60
--- NOTE | 2017-03-23 04:00 | NUR ---
Vital Signs BP 104/60, pulse 59, respirations 12, SpO2 97%, temp 98.1, no pain 0/10 CIWA/COWS assessment deferred d/t pt sleeping, to assess while pt is awake as ordered. Safety measures in place, will continue to monitor.
--- NOTE | 2017-03-23 07:00 | NUR ---
End of Shift Pt is a 22 year old male admitted for Benzo/Opiate/meth dependence, placed on 5 day Valium taper and 5 day Subutex taper. PMH: Anxiety, depression and seizure x1 d/t benzo withdrawal 4 years ago. NKA, fall/seizure precautions, regular diet and full code. During shift, pt presented with muscle aches, skin flushed, scheduled taper medications administered, effective in management of s/s of withdrawal as reported by pt, CIWA 2 and COWS 1. NO PRN medications administered during shift. VS stable, pt slept for 6 hours, intake of 1700ml PO and voids x2. Safety measures in place, call light within reach, side rails up x2, bed locked and in low position. Endorsed to day shift nurse.
--- NOTE | 2017-03-23 07:20 | NUR ---
Start of Shift Report from night nurse: pt is a 22 y/o male here for Opiate r/t Heroin 1-2g/d x 4 months, Methamphetamine 1-3/d x 4 months, Benzo's r/t Xanax 12mg /d x 4 months; 5 day Valium and 5 day Subutex tapers ordered. Pt is a full code; regular diet, NKA, fall and seizure precautions ordered. HHx: Anxiety, depression, seizure x 1 r/t w/d from benzo 4 yrs ago and relapsed after leaving her in 09/2016. V/S stable. Skin has generalized tracts r/t heroin injections. No new labs or orders endorsed to me. Last COWS 1 CIWA 2. Pt is asleep in room. Will cont. to monitor the pt.
[2017-03-23 08:00] VITALS: BP 102/60
[2017-03-23] MEDS: GABAPENTIN 300 MG CAPSULE PO SCH (10:18)
[2017-03-23] MEDS: DOCUSATE SODIUM 100 MG CAPSULE PO SCH (10:18)
[2017-03-23] MEDS: MULTIVITAMINS,THERAPEUTIC TABLET PO SCH (10:19)
[2017-03-23] MEDS: SERTRALINE HCL 100 MG TABLET PO SCH (10:19)
[2017-03-23] MEDS: IBUPROFEN 400 MG TABLET PO PRN (10:19)
--- NOTE | 2017-03-23 10:20 | NUR ---
PRN Medication Pt is in room and getting ready to go to group, pt c/o HER 5/10 pain; PRN Motrin 400mg given as ordered. Will reassess in 1H.
[2017-03-23] MEDS ORDERED: Trazodone Hcl PO (11:05)
[2017-03-23] MEDS ORDERED: Gabapentin PO (11:05)
[2017-03-23] MEDS ORDERED: HYDR-3895 PO (11:05)
[2017-03-23] MEDS ORDERED: CLON0.1T14 PO (11:05)
--- NOTE | 2017-03-23 11:20 | NUR ---
Reassessment Pt is involved group therapy and no non-verbal s/sx of HER noted; Motrin is effective. Will cont. to monitor the pt.
--- NOTE | 2017-03-23 15:40 | NUR ---
AMA Pt is anxious and agaited r/t situation re: his mate was going to leave here AMA take his car so he states that he was going to leave AMA also; I explained to the pt to be cooperative with POC since he is scheduled to get d/c'd tomorrow and go to rehab with the risks involved and poor outcomes x 3 attempts yet the pt refused. Pt's V/S stable, and denies chest pain, no SOB, so belongings given and he signed the AMA Note.
== END 2017-03-23 15:40 | disposition left against medical advice (07) | DRG 894 ==
LOC: SRC 22:23
PROVIDERS: ADMIT Internal Medicine; ATTEND Internal Medicine
PROC: HZ2ZZZZ Detoxification Services for Substance Abuse Treatment (ICD-10-PCS; principal; 2017-03-17)
PROC: HZ41ZZZ Group Counseling for Substance Abuse Treatment, Behavioral (ICD-10-PCS; 2017-03-20)
DX: F11.23 Opioid dependence with withdrawal (principal); F33.1 Major depressive disorder, recurrent, moderate; F15.20 Other stimulant dependence, uncomplicated; F13.230 Sedative, hypnotic or anxiolytic dependence with withdrawal, uncomplicated; F41.9 Anxiety disorder, unspecified; F90.9 Attention-deficit hyperactivity disorder, unspecified type; Z59.0 Homelessness; Z81.4 Family history of other substance abuse and dependence; D64.9 Anemia, unspecified; D47.3 Essential (hemorrhagic) thrombocythemia; F17.210 Nicotine dependence, cigarettes, uncomplicated; E07.81 Sick-euthyroid syndrome
CPT/HCPCS: 36415; 70030-TC; 80307; 80324; 80346; 80361; 83690; 83735; 84443; 85025; 86580; 86705; 87340; 87806; A4663; G6040-TC; Q0162